=== PATIENT | male | born 1985 | race American Indian/Alaskan Native ===

== ENCOUNTER 2020-05-07 17:21 | Emergency (ER) | payer SELFPAY ==
[2020-05-07] MEDS ORDERED: IBUPROFEN 600 MG TAB PO ONE (22:04)
[2020-05-07] MEDS ORDERED: DIPHtheria,PERTUSSIS(ACELL),TETANUS VACCINE/PF 0.5 ML VIAL IM ONE (22:04)
[2020-05-07] MEDS ORDERED: LIDOCAINE-MPF (1%) 10 MG/1 ML VIAL 5 ML INFILTRATI ONE (22:04)
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
[2020-05-07 23:44] VITALS: BP 120/78
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
== END 2020-05-07 23:42 | disposition home or self-care (01) ==
LOC: ED 17:21
DX: S71.011A Laceration without foreign body, right hip, initial encounter (principal); X99.0XXA Assault by sharp glass, initial encounter; Y93.89 Activity, other specified; Y92.89 Other specified places as the place of occurrence of the external cause; Y99.8 Other external cause status
CPT/HCPCS: 90715; 99283